=== PATIENT | male | born 1945 | race Caucasian/White ===

== ENCOUNTER 2021-10-13 05:49 | Day surgery (SDC) | payer MEDICARE ==
[2021-10-07 13:17] VITALS: BMI 30.9
[2021-10-13] MEDS ORDERED: Lidocaine 1% MPF 2 ML VIAL ONE (06:23)
[2021-10-13] MEDS ORDERED: PROPOFOL 20 ML ONE (06:57)
== END 2021-10-13 08:25 | disposition home or self-care (01) ==
LOC: CSHSDC 05:49
PROVIDERS: ATTEND Otolaryngology Otolaryngic Allergy
PROC: [UNRECOGNIZED PROCEDURE] (principal; 2021-10-13)
DX: G47.33 Obstructive sleep apnea (adult) (pediatric) (principal); Z68.28 Body mass index [BMI] 28.0-28.9, adult; Z79.899 Other long term (current) drug therapy; I10 Essential (primary) hypertension
CPT/HCPCS: J2704

== ENCOUNTER 2021-12-08 06:46 | Day surgery (SDC) | payer MEDICARE ==
[2021-12-03 11:00] VITALS: BMI 28.8
[~2021-12-08 06:46] MED LIST: Phenylephrine 40 MG/NS 250 ML 250 ML ONE; Propofol 1,000 MG/100 ML VIAL IV ONE
[2021-12-08] MEDS ORDERED: Lidocaine 1% MPF 2 ML VIAL ONE (07:24)
[2021-12-08] MEDS ORDERED: PHENYLEPHRINE-NS 100 MCG/ML 10 ML SYRINGE ONE (07:45)
[2021-12-08] MEDS ORDERED: Ondansetron PF 4 MG/2 ML Vial ONE (07:45)
[2021-12-08] MEDS ORDERED: Rocuronium Bromide 10 MG/ML (10ML VIAL) ONE (07:45)
[2021-12-08] MEDS ORDERED: Dexamethasone 20 MG/5 ML VIAL ONE (07:45)
[2021-12-08] MEDS ORDERED: Fentanyl 250 MCG/5 ML VIAL ONE (07:45)
[2021-12-08] MEDS ORDERED: PROPOFOL 20 ML ONE (07:45)
[2021-12-08] MEDS ORDERED: Midazolam HCl 2 mg/2 ml Vial ONE (07:45)
[2021-12-08] MEDS ORDERED: Lidocaine 1% PF 5 ML VIAL ONE (07:46)
[2021-12-08] MEDS ORDERED: ePHEDrine Sulfate 50 MG/10 ML VIAL ONE (07:46)
[2021-12-08] MEDS ORDERED: EPINEPHrine 1 MG/ML AMP ONE (07:58)
[2021-12-08] MEDS ORDERED: ceFAZolin 2 GM/Dextrose 50 ML IVPB ONE (08:02)
[2021-12-08] MEDS ORDERED: Lidocaine 1% w/Epinephrine 1:100K 20 ML VIAL ONE (08:59)
== END 2021-12-08 11:35 | disposition home or self-care (01) ==
LOC: CSHSDC 06:46
PROVIDERS: ATTEND Otolaryngology Otolaryngic Allergy
DX: G47.33 Obstructive sleep apnea (adult) (pediatric) (principal); Z79.899 Other long term (current) drug therapy; I10 Essential (primary) hypertension
CPT/HCPCS: C1820; C1898; J0171; J0690; J1100; J2250; J2405; J2704; J3010

== ENCOUNTER 2022-10-14 09:59 | Outpatient (CLI) | payer MEDICARE, OTHER | END 2022-10-14 10:00 | disposition home or self-care (01) | LOC: CSHCP 09:59 | PROVIDERS: ATTEND Internal Medicine Critical Care Medicine | DX: R06.00 Dyspnea, unspecified (principal) | CPT/HCPCS: 94060; 94726; 94729; 94760 ==

== ENCOUNTER 2023-06-21 09:07 | Day surgery (SDC) | payer MEDICARE, OTHER ==
[2023-06-21] MEDS ORDERED: Iopamidol-M 200 41% 10 ML VIAL FS ONE (14:07)
[2023-06-21] MEDS ORDERED: FLU VACC QS2023(65UP)/MF59C/PF 60 MCG/0.5 ML SYRINGE IM ONE (14:45)
== END 2023-06-21 13:15 | disposition home or self-care (01) ==
LOC: CJX 09:07 → EDSTATUS 10:00 → CJX 13:15
PROVIDERS: ATTEND Neurological Surgery
PROC: B02BYZZ Computerized Tomography (CT Scan) of Spinal Cord using Other Contrast (ICD-10-PCS; principal; 2023-06-21)
DX: M51.16 Intervertebral disc disorders with radiculopathy, lumbar region (principal)
CPT/HCPCS: 62304; 72132; Q9966

== ENCOUNTER 2023-06-22 12:39 | Emergency (ER) | payer MEDICARE, OTHER | END 2023-06-22 15:20 | disposition home or self-care (01) | LOC: CSHERS 12:39 | DX: R51.9 Headache, unspecified (principal); M54.2 Cervicalgia; I10 Essential (primary) hypertension | CPT/HCPCS: 99283 ==

== ENCOUNTER 2025-04-22 08:53 | Outpatient (CLI) | payer MEDICARE ==
[2025-04-22 10:09] LABS: Estimated GFR - POC 87.0
[2025-04-22] MEDS ORDERED: Iopamidol 300 61% 100 ML VIAL FS ONE (13:06)
== END 2025-04-22 08:54 | disposition home or self-care (01) ==
LOC: CSHCT 08:53
PROVIDERS: ATTEND Physician Assistant Medical
DX: R19.7 Diarrhea, unspecified (principal)
CPT/HCPCS: 74177; 82565; Q9967